=== PATIENT | male | born 1995 | race Caucasian/White ===

== ENCOUNTER 2024-03-15 17:27 | Emergency (ER) | payer OTHER ==
[2024-03-15] MEDS ORDERED: Ibuprofen 800 MG TAB ONE (18:56)
[2024-03-15] MEDS ORDERED: HYDROcodone/Acetaminophen 10/325 mg Tablet ONE (18:56)
== END 2024-03-15 19:15 ==
LOC: NAV ERS 17:27
DX: S63.91XA Sprain of unspecified part of right wrist and hand, initial encounter (principal); I10 Essential (primary) hypertension; W22.01XA Walked into wall, initial encounter